=== PATIENT | female | born 1945 | race Caucasian/White ===

== ENCOUNTER 2024-03-19 09:30 | Emergency (ER) | payer MEDICARE, OTHER ==
[~2024-03-19] VITALS: Ht 152.4 cm; Wt 70.3 kg
[~2024-03-19 09:30] MED LIST: ACET-66 PO; ALBU10.7 IH; ALPR0.255 PO; AMLO-257 PO; ASCO500T10 PO; ATOR40TA69 PO; BIOT1TAB7 PO; BUDE10.2 IH; CLOP75TA32 PO; DEXA6TAB PO; ENOX100D4 SQ; FURO40TA5 PO; ISOS30TA92 PO; LEVO750T40 PO; METO-408 PO; MONT-39 PO; MULT-1367 PO; MV-M1CAP24 PO; NITR0.4T50 SL; OMEP40CA21 PO; POTA-200 PO; WARF3TAB59 PO
[2024-03-19] MEDS: TRIAMCINOLONE ACETONIDE 40 MG/ML 1ML VIAL IM ONE (09:51)
[2024-03-19] MEDS: ORPHENADRINE 60MG/2ML IM ONE (09:51)
--- NOTE | 2024-03-19 10:06 | NUR ---
PT C/O RLE PAIN AND NOT ABLE TO WALK. 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
--- NOTE | 2024-03-19 11:06 | HMCIMG ---
Exam Type: US VENOUS DOPPLER UNILATERAL Clinical Information: R LOWER EXTREMITUY PAIN Comparison: None Findings: The examination shows nonocclusive thrombosis of the common femoral vein. The rest of the venous structures evaluated shows no evidence of thrombosis. IMPRESSION: Thrombus as noted.
[2024-03-19 11:20] LABS: CREATININE 0.7 mg/dL (0.5-1.0); MAGNESIUM 1.9 mg/dL (1.80-2.40); POTASSIUM 3.6 mmol/L (3.5-5.1)
--- NOTE | 2024-03-19 11:22 | HMCIMG ---
Exam Type: KNEE 3VWS RT Clinical Information: FALL Comparison: None Findings: There is superior patellar osteophytosis. No other degenerative changes are seen. No acute fractures are seen. The soft tissues appear normal. Impression: Patellar osteophyte.
[2024-03-19 11:23] LABS: BASOPHILS # (AUTO) 0.04 K/uL (0.00-0.20); BASOPHILS % (AUTO) 0.6 % (0.0-5.0); EOSINOPHILS % (AUTO) 1.6 % (0.0-8.0); HEMATOCRIT 43.9 % (36-48); IMMATURE GRANULOCYTE ABSOLUTE 0.03 K/uL (0-1); LYMPHOCYTES # (AUTO) 1.7 K/uL (1.0-4.8); LYMPHOCYTES % (AUTO) 26.2 % (21.0-51.0); MEAN CORPUSCULAR HEMOGLOBIN 33.3 pg (27.0-33.0); MEAN CORPUSCULAR VOLUME 100.7 fL (79-99); MONOCYTES # (AUTO) 0.6 K/uL (0.1-1.0); MONOCYTES % (AUTO) 8.7 % (3.0-13.0); NEUTROPHILS % (AUTO) 62.4 % (40.0-77.0); PLATELET COUNT (AUTO) 178 K/uL (130-400); RED BLOOD CELL COUNT(AUTO) 4.36 MIL/uL (4.00-5.50); RED CELL DISTRIBUTION WIDTH 13.9 % (11.0-15.5); WHITE BLOOD COUNT (AUTO) 6.4 K/uL (4.8-10.8)
--- NOTE | 2024-03-19 11:30 | ERN ---
General Chief Complaint: Lower Extremity Pain/Injury Stated Complaint: RIGHT LEG PAIN S/P FALL ON COUMADIN NO HEAD INJURY Time Seen by MD: 09:31 Source: patient History of Present Illness Initial Comments PATIENT IS A 78-YEAR-OLD FEMALE COMING IN TO BE EVALUATED FOR RIGHT LOWER EXTREMITY PAIN. PER PATIENT THIS HAS BEEN ONGOING FOR A COUPLE OF DAYS. SHE ALSO STATES SHE HAS A HISTORY OF BLOOD CLOTS HAD BEEN PRESENT IN THE PAST. SHE IS CURRENTLY TAKING WARFARIN. Allergies: Coded Allergies: Penicillins (Unverified Allergy, Unknown, 03/11/23) Sulfa (Sulfonamide Antibiotics) (Unverified Allergy, Unknown, 03/11/23) rofecoxib (Unverified Allergy, Unknown, 03/11/23) Home Meds Active Scripts Enoxaparin Sodium (Lovenox) 100 Mg/Ml Disp.syrin, 100 MG SQ DAILY for 7 Days, #7 DIS.SYR Prov:GALLO WARE MD 03/14/23 Dexamethasone (Dexamethasone) 6 Mg Tablet, 6 MG PO DAILY for 5 Days, #5 TAB Prov:GALLO WARE MD 03/14/23 Levofloxacin (Levofloxacin) 750 Mg Tablet, 750 MG PO q48hr, #3 TAB 0 Refills Prov:GALLO WARE MD 03/14/23 Reported Medications Warfarin Sodium (Warfarin Sodium) 3 Mg Tablet, 3.5 MG PO DAILY, TAB 03/12/23 Potassium Chloride (Potassium Chloride) 10 Meq Tab.er.prt, 10 MEQ PO DAILY 03/12/23 Omeprazole (Omeprazole) 40 Mg Capsule.dr, 40 MG PO DAILY, CAP 03/12/23 Mv-Mn/Om3/Dha/Epa/Fish/Lut/Fede (Ocuvite Adult 50 Plus Softgel) 250 Mg (90 Mg-160 Mg)-5 Mg-1 Mg Capsule, 1 EACH PO DAILY, CAP 03/12/23 Nitroglycerin (Nitroglycerin) 0.4 Mg Tab.subl, 0.4 MG SL AD PRN for CHEST PAIN, TAB.SL 03/12/23 Multivitamin (Multivitamin) 1 Each Tablet, 1 EACH PO DAILY, TAB 03/12/23 Montelukast Sodium (Montelukast Sodium) 10 Mg Tablet, 10 MG PO DAILY, TAB 03/12/23 Metoprolol Succinate (Metoprolol Succinate) 25 Mg Tab.er.24h, 25 MG PO DAILY, TAB 03/12/23 Isosorbide Mononitrate (Isosorbide Mononitrate ER) 30 Mg Tab.er.24h, 15 MG PO DAILY, TAB 03/12/23 Furosemide (Furosemide) 40 Mg Tablet, 40 MG PO DAILY, TAB 03/12/23 Clopidogrel Bisulfate (Clopidogrel) 75 Mg Tablet, 75 MG PO DAILY, TAB 03/12/23 Budesonide/Formoterol Fumarate (Symbicort 160-4.5 Mcg Inhaler) 160 Mcg-4.5 Mcg/Actuation Hfa.aer.ad, 10.2 GM IH BID 03/12/23 Biotin (Biotin) 1 Mg Tablet, 1 MG PO DAILY, TAB 03/12/23 Atorvastatin Calcium (LIPITOR) 40 Mg Tablet, 40 MG PO HS, TAB 03/12/23 Ascorbic Acid (Ascorbic Acid) 500 Mg Tablet, 500 MG PO DAILY, TAB 03/12/23 Amlodipine Besylate (Amlodipine Besylate) 5 Mg Tablet, 5 MG PO DAILY, TAB 03/12/23 Alprazolam (Alprazolam) 0.25 Mg Tablet, 0.25 MG PO TIDP PRN for ANXIETY, TAB 03/12/23 Albuterol Sulfate/Budesonide (Airsupra 90-80 Mcg Inhaler) 90 Mcg-80 Mcg/Actuation Hfa.aer.ad, 10.7 GM IH Q4HPRN PRN for SHORTNESS OF BREATH/WHEEZING 03/12/23 Acetaminophen (Acetaminophen) 500 Mg Tablet, 500 MG PO Q6HPRN PRN for PAIN LEVEL 1 TO 3, TAB 03/12/23 Past Medical History Past Medical History: Hypertension, Other Medical History Other: LUPUS Past Surgical History: CABG, Other Surgical History Other: HIP ROS Dictation CONSTITUTIONAL: NO CHILLS, NO FEVER, NO WEAKNESS, NO DIAPHORESIS, NO MALAISE. HEAD/FACE: NO SIGNS OF TRAUMA. EENT: NO EYE PAIN, NO BLURRED VISION, NO TEARING, NO DOUBLE VISION, NO EAR PAIN, NO EAR DISCHARGE, NO NOSE PAIN, NO NASAL CONGESTION, NO THROAT PAIN, NO THROAT SWELLING, NO MOUTH PAIN. RESPIRATORY: NO COUGH, NO ORTHOPNEA, NO SOB, NO STRIDOR, NO WHEEZING. CARDIOVASCULAR: NO CHEST PAIN, NO EDEMA, NO PALPITATIONS, NO SYNCOPE. GASTROINTESTINAL/ABDOMINAL: NO ABDOMINAL PAIN, NO CONSTIPATION, NO DIARRHEA, NO NAUSEA, NO VOMITING. GENITOURINARY: NO ABNORMAL DISCHARGE, NO DYSURIA, NO FREQUENT URINATION, NO HEMATURIA. NO COMPLAINTS OF PAIN IN THE GENITALS. MUSCULOSKELETAL: NO BACK PAIN, NO GOUT, JOINT PAIN, NO JOINT SWELLING, MUSCLE PAIN, NO MUSCLE STIFFNESS, NO NECK PAIN. INTEGUMENTARY: NO CHANGE IN COLOR, NO CHANGE IN HAIR/NAILS, NO DRYNESS, NO LESION, NO LUMPS, NO RASH. NEUROLOGICAL/PSYCH: NO ANXIETY, NOT DEPRESSED, NO EMOTIONAL PROBLEM, NO HEADACHE, NO NUMBNESS, NO PRE-EXISTING DEFICIT, NO HISTORY OF SEIZURES, NO TREMORS, NO WEAKNESS. HEMATOLOGIC/LYMPHATIC: NOT ANEMIC, NO HISTORY OF BLOOD CLOTS, NO APPARENT BLEEDING, NO BRUISING, GLANDS NOT SWOLLEN. ALL SYSTEMS NEGATIVE, EXCEPT NOTED. Physical Exam Physical Exam Dictation VITAL SIGNS: REVIEWED. GENERAL APPEARANCE: ALERT, ORIENTED X3, NO ACUTE DISTRESS, OBESE. HEAD AND FACE: NON-TRAUMATIC. EYES: PERRL, PINK CONJUNCTIVAS, EYELID NO TRAUMA, ANTERIOR CHAMBER CLEAR. EARS: PINNAS INTACT AND NO SIGNS OF TRAUMA OR ERYTHEMA. EAR CANALS CLEAR AND NO DISCHARGE. TMS NO ERYTHEMA. NOSE: NO DISCHARGE, NO BLEEDING. OROPHARYNX: MOUTH NORMAL, TEETH NO CARIES, TONGUE PINK. PHARYNX CLEAR, NO ERYTHEMA. TONSILS NO EXUDATES, NO ABSCESSES NOTED. MUCOUS MEMBRANE MOIST. NECK: SUPPLE, NON-TENDER, NO THYROMEGALY, NO MASSES, NO JVD, NO BRUITS. BREAST: DEFERRED. CHEST: NO TENDERNESS, NO CREPITUS, NO PARADOXICAL MOVEMENT, NO RETRACTIONS. LUNGS: CLEAR, WELL-VENTILATED, SYMMETRIC, NO RALES, NO WHEEZING, NO RHONCHI, NO STRIDOR, GOOD BREATH SOUNDS BILATERALLY. HEART: REGULAR RATE, REGULAR RHYTHM, NO MURMUR, NO GALLOPS. VASCULAR: NO PERIPHERAL EDEMA. ABDOMEN: SOFT, POSITIVE BOWEL SOUNDS, NONDISTENDED, NO GUARDING, NONTENDER, NO REBOUND, NO MASSES NO HEPATOMEGALY, NO SPLENOMEGALY, NO BRADSHAW'S SIGN, NO HERNIAS. RECTAL: DEFERRED. GENITAL: DEFERRED. NEUROLOGICAL: NORMAL SPEECH, GROSS MOTOR FUNCTION INTACT, GROSS SENSORY FUNCTION INTACT. MUSCULOSKELETAL: NECK NONTENDER, FULL RANGE OF MOTION, BACK NONTENDER, FULL RANGE OF MOTION. EXTREMITIES: NONTENDER, FULL RANGE OF MOTION. RIGHT LOWER EXTREMITY PAIN ON PALPATION, RIGHT KNEE TENDERNESS ON PALPATION, PAIN ON FLEXION AND EXTENSION SKIN: COLOR PINK, DRY, NO TURGOR, NO RASH, NO LACERATIONS, NO ABRASIONS, NO CONTUSIONS. LYMPHATICS: DEFERRED. Results Laboratory and Microbiology Lab and Micro Result Laboratory Tests Test 03/19/24 10:49 White Blood Count 6.4 K/uL (4.8-10.8) Red Blood Count 4.36 MIL/uL (4.00-5.50) Hemoglobin 14.5 g/dL (12.0-16.0) Hematocrit 43.9 % (36-48) Mean Corpuscular Volume 100.7 fL (79-99) H Mean Corpuscular Hemoglobin 33.3 pg (27.0-33.0) H Mean Corpuscular Hemoglobin Concent 33.0 g/dL (32.0-36.0) Red Cell Distribution Width 13.9 % (11.0-15.5) Platelet Count 178 K/uL (130-400) Mean Platelet Volume 10.1 fL (7.5-10.5) Immature Granulocyte % (Auto) 0.5 % (0-1) Neutrophils (%) (Auto) 62.4 % (40.0-77.0) Lymphocytes (%) (Auto) 26.2 % (21.0-51.0) Monocytes (%) (Auto) 8.7 % (3.0-13.0) Eosinophils (%) (Auto) 1.6 % (0.0-8.0) Basophils (%) (Auto) 0.6 % (0.0-5.0) Neutrophils # (Auto) 4.0 K/uL (1.8-7.7) Lymphocytes # (Auto) 1.7 K/uL (1.0-4.8) Monocytes # (Auto) 0.6 K/uL (0.1-1.0) Eosinophils # (Auto) 0.10 K/uL (0.00-0.70) Basophils # (Auto) 0.04 K/uL (0.00-0.20) Absolute Immature Granulocyte (auto 0.03 K/uL (0-1) Nucleated Red Blood Cells 0.0 % (0.0-0.19) Prothrombin Time 68.8 SEC (9.6-11.6) *H Prothromb Time International Ratio > 7.00 (0.85-1.15) *H Sodium Level 146 mmol/L (136-145) H Potassium Level 3.6 mmol/L (3.5-5.1) Chloride Level 106 mmol/L (101-111) Carbon Dioxide Level 33 mmol/L (21-32) H Blood Urea Nitrogen 10 mg/dL (7-18) Creatinine 0.7 mg/dL (0.5-1.0) Glomerular Filtration Rate Calc 89 mL/min (>90) Random Glucose 92 mg/dL (70-105) Total Calcium 9.3 mg/dL (8.5-10.1) Magnesium Level 1.90 mg/dL (1.80-2.40) Labs Reviewed?: Yes EKG/XRAY/US/CT/MRI X-RAY Comment [address] [place] [id number] IMAGING REPORT Signed PATIENT: KATYA KOENIG MR#: [id number] : 1945 SEX: F AGE: 78 LOCATION: EDH ORDER 31 STATUS: REG ER REPORT#: [id number] SERVICE 103 REASON: FALL ORDERING PHYSICIAN: LOGAN WISEMAN MD PROCEDURE: KNEE 3V RT - KNEE 3VWS RT Exam Type: KNEE 3VWS RT Clinical Information: FALL Comparison: None Findings: There is superior patellar osteophytosis. No other degenerative changes are seen. No acute fractures are seen. The soft tissues appear normal. Impression: Patellar osteophyte. DICTATED BY: ZEE HOANG MD DATE: 03/19/241119 ELECTRONICALLY SIGNED BY: ZEE HOANG MD DATE: 03/19/241121 Ultrasound Comment [facility] [address] [place] [id number] IMAGING REPORT Signed PATIENT: KATYA KOENIG MR#: [id number] : 1945 SEX: F AGE: 78 LOCATION: ED ORDER 1032 STATUS: REG ER [facility] REPORT#: [id number] SERVICE 1030 REASON: R LOWER EXTREMITUY PAIN ORDERING PHYSICIAN: LOGAN WISEMAN MD PROCEDURE: VENOUS UNI - US VENOUS DOPPLER UNILATERAL Exam Type: US VENOUS DOPPLER UNILATERAL Clinical Information: R LOWER EXTREMITUY PAIN Comparison: None Findings: The examination shows nonocclusive thrombosis of the common femoral vein. The rest of the venous structures evaluated shows no evidence of thrombosis. IMPRESSION: Thrombus as noted. DICTATED BY: ZEE HOANG MD DATE: 03/19/241103 ELECTRONICALLY SIGNED BY: ZEE HOANG MD DATE: 03/19/241105 [facility] MDM: DIFFERENTIAL DIAGNOSIS: PARTIAL FEMORAL OR DVT, OSTEOPHYTE OF THE PATELLAR, MACROCYTIC , ELEVATED INR PATIENT IS A 78-YEAR-OLD FEMALE COMING IN TO BE EVALUATED FOR RIGHT LOWER EXTREMITY DISCOMFORT. IMAGING STUDIES DID DISCLOSE A OSTEOPHYTE OF THE RIGHT PATELLAR WELL A PARTIAL OCCLUDED SOME OLD THROMBUS. NO OTHER FINDING THAT WAS PRESENT WAS ELEVATED MCV. PATIENT HAS A HISTORY OF LUPUS WITH REPEATED BLOOD CLOTS IN THE PAST SO WAS PLACED ON WARFARIN. PER PATIENT SHE HAS NOT CHECKED HER INR IN A WEEK OR TWO AND TODAY'S INR WAS AT SEVEN. PATIENT IS CURRENTLY NOT HEMORRHAGING I ADVISED HER TO HOLD OFF ON TAKING TWO DAYS WARFARIN. I ALSO ADVISED HER APPROPRIATE FOLLOW UP WITH PCP TOMORROW TO RECHECK INR. KNEE IMMOBILIZER IN PLACE TO HELP WITH KNEE STRAIN. ED Course Orders Procedure Category Date Status Time Triamcinolone Acet PHA 03/19/24 Complete 40mg/Ml 1ml (Kenalog 10:00 Orphenadrine Citrate PHA 03/19/24 Complete (Norflex) 10:00 Knee 3vws Rt RAD 03/19/24 Resulted 10:30 Us Venous Doppler US 03/19/24 Resulted Unilateral 10:30 Cbc With Differential LAB 03/19/24 Complete 10:30 Basic Metabolic Panel LAB 03/19/24 Complete 10:30 Magnesium LAB 03/19/24 Complete 10:30 Prothrombin Time With LAB 03/19/24 Complete INR 11:30 Current Medications Medications (Trade) Dose Ordered Sig/Tito Route PRN Reason Start Time Stop Time Status Last Admin Dose Admin Orphenadrine Citrate (Norflex) 60 mg ONCE ONCE IM 03/19/24 10:00 03/19/24 10:01 DC 03/19/24 09:51 Triamcinolone Acetonide (Kenalog 40) 40 mg ONCE ONCE IM 03/19/24 10:00 03/19/24 10:01 DC 03/19/24 09:51 Vital Signs Date Time Temp Pulse Resp B/P (MAP) Pulse Ox O2 Delivery O2 Flow Rate FiO2 03/19/24 09:30 98.1 70 20 164/75 Room Air 0 DX & DISP Disposition: Discharge Departure Impression: Primary Impression: Elevated INR Additional Impressions: Macrocytic anemia, Osteophyte of right knee, Strain of knee and leg, right Condition: Stable Additional Instructions: FOLLOW-UP WITH PRIMARY CARE PROVIDER IN 1 TO 2 DAYS. TAKE MEDICATIONS DIRECTED HERE IN THE EMERGENCY ROOM. OKAY TO CONTINUE HOME MEDICATIONS UNLESS OTHERWISE DISCUSSED DURING YOUR VISIT IN THE EMERGENCY ROOM TODAY. RETURN TO YOUR NEAREST EMERGENCY ROOM IF SYMPTOMS WORSEN OR IF THERE IS NO IMPROVEMENT. CALL 911 IF YOU NEED IMMEDIATE ASSISTANCE. TAKE TYLENOL [id number] NEEDED AND IF NO CONTRAINDICATIONS ARE PRESENT. INCREASE ORAL HYDRATION. A WOUND CULTURE OR URINE CULTURE WAS ORDERED HERE IN THE EMERGENCY ROOM DEPARTMENT PLEASE FOLLOW-UP WITH PRIMARY CARE PROVIDER AND ADVISE THEM TO GET REPEAT PORTS FROM OUR FACILITY. IF YOU HAD ANY YO WRAP/SPLINTS THAT WERE APPLIED HERE, PLEASE DO NOT REMOVE THEM UNTIL YOU SEE YOUR PRIMARY CARE OR SPECIALTY. REFERRALS: Referrals: SELF,REFERRAL (PCP) DEBBIE VILLARREAL MD Time of Disposition: 13:06 LOGAN WISEMAN MD Mar 19, 2024 11:30
[2024-03-19 12:04] LABS: INR > 7.00 (0.85-1.15); PROTHROMBIN TIME 68.8 SEC (9.6-11.6)
[2024-03-19 13:24] VITALS: BP 136/62; PULSE 72; RESP 18; TEMP 98.7; O2SAT 99
--- NOTE | 2024-03-19 13:31 | NUR ---
right knee short immobilizer placed
== END 2024-03-19 13:35 | disposition home or self-care (01) ==
LOC: EDH 09:30
DX: S66.911A Strain of unspecified muscle, fascia and tendon at wrist and hand level, right hand, initial encounter (principal); R79.1 Abnormal coagulation profile; D53.9 Nutritional anemia, unspecified; M25.761 Osteophyte, right knee; I10 Essential (primary) hypertension; Z79.01 Long term (current) use of anticoagulants; Z79.02 Long term (current) use of antithrombotics/antiplatelets; Z79.51 Long term (current) use of inhaled steroids; Z79.52 Long term (current) use of systemic steroids; Z79.899 Other long term (current) drug therapy; Z86.718 Personal history of other venous thrombosis and embolism; Z88.0 Allergy status to penicillin; Z88.2 Allergy status to sulfonamides; Z95.1 Presence of aortocoronary bypass graft; X58.XXXA Exposure to other specified factors, initial encounter; Y93.89 Activity, other specified; Y92.89 Other specified places as the place of occurrence of the external cause; Y99.8 Other external cause status
CPT/HCPCS: 99285; 93971; 83735; 80048; 85025; 85610; 36415; 73562; 96372 ×2; J3301; J2360